=== PATIENT | male | born 1980 ===

== ENCOUNTER 2021-09-15 10:22 | Emergency (ER) | payer SELFPAY ==
--- NOTE | 2021-09-15 15:29 | Emergency Department Report ---
- General Chief Complaint: Upper Respiratory Infection Stated Complaint: ABD PAIN/N/V SOB Source: EMS Mode of arrival: Stretcher Limitations: No Limitations - History of Present Illness Initial Comments: 41-year-old male presents to the ED complaining cough, nasal congestion, headache, body ache x3 days. Patient states that he has been taking [id number] Mucinex sinus medication the last 2 weeks but noticed he has progressively gotten worse over the last 3 days. Patient states that he went to the clinic yesterday to get a COVID test do not know the results as of today. Patient states he is vaccinated to the COVID-vaccine. She states vaccination x1 year ago . patient denies any chest pain ,shortness of breath or abdominal pain at present time. Patient states that his nasal drainage is making him nauseous. Patient is alert and oriented x3. No acute distress noted. No Ill appearance noted. MD Complaint: cough, rhinorrhea, nasal congestion Associated Symptoms: denies other symptoms Treatments Prior to Arrival: none - Related Data Previous Rx's Medication Instructions Recorded Last Taken Type Azithromycin 250 mg PO QDAY 5 Days #6 tab 09/15/21 Unknown Rx predniSONE [Deltasone] 50 mg PO QDAY 5 Days #5 tab 09/15/21 Unknown Rx Allergies Allergy/AdvReac Type Severity Reaction Status Date / Time No Known Allergies Allergy Verified 09/15/21 15:56 ED Review of Systems ROS: Stated complaint: ABD PAIN/N/V SOB Other details as noted in HPI Constitutional: denies: chills, fever Eyes: denies: eye pain, eye discharge, vision change ENT: denies: ear pain, throat pain Respiratory: denies: cough, shortness of breath, wheezing Cardiovascular: denies: chest pain, palpitations Endocrine: no symptoms reported Gastrointestinal: denies: abdominal pain, nausea, diarrhea Genitourinary: denies: urgency, dysuria Musculoskeletal: denies: back pain, joint swelling, arthralgia Skin: denies: rash, lesions Neurological: denies: headache, weakness, paresthesias Psychiatric: denies: anxiety, depression Hematological/Lymphatic: denies: easy bleeding, easy bruising ED Past Medical Hx - Past Medical History Previous Medical History?: No - Surgical History Past Surgical History?: No - Medications Home Medications: Home Medications Medication Instructions Recorded Confirmed Last Taken Type Azithromycin 250 mg PO QDAY 5 Days #6 tab 09/15/21 Unknown Rx predniSONE [Deltasone] 50 mg PO QDAY 5 Days #5 tab 09/15/21 Unknown Rx ED Physical Exam - General Limitations: No Limitations General appearance: alert, in no apparent distress - Head Head exam: Present: atraumatic, normocephalic - Eye Eye exam: Present: normal appearance - ENT ENT exam: Present: mucous membranes moist - Expanded ENT Exam Expanded TM/Canal exam: Cerumen Impaction: Right TM, Left TM, Mastoid Tenderness: Right TM, Left TM (frontal) Throat exam: Positive: other (post nasal drip) - Neck Neck exam: Present: normal inspection - Respiratory Respiratory exam: Present: normal lung sounds bilaterally. Absent: respiratory distress - Cardiovascular Cardiovascular Exam: Present: regular rate, normal rhythm. Absent: systolic mu rmur, diastolic murmur, rubs, gallop - GI/Abdominal GI/Abdominal exam: Present: soft, normal bowel sounds - Rectal Rectal exam: Present: deferred - Extremities Exam Extremities exam: Present: normal inspection - Back Exam Back exam: Present: normal inspection - Neurological Exam Neurological exam: Present: alert, oriented X3 - Psychiatric Psychiatric exam: Present: normal affect, normal mood - Skin Skin exam: Present: warm, dry, intact, normal color. Absent: rash ED Course Vital Signs 09/15/21 09/15/21 09/15/21 10:29 15:53 15:54 Temperature 99.4 F Pulse Rate 111 H 119 H Respiratory 20 24 Rate Blood Pressure Blood Pressure 151/106 133/94 [Left] O2 Sat by Pulse 96 94 94 Oximetry 09/15/21 16:45 Temperature 99.6 F Pulse Rate 123 H Respiratory 24 Rate Blood Pressure 133/90 Blood Pressure [Left] O2 Sat by Pulse 91 Oximetry ED Medical Decision Making - Radiology Data [facility] [address] [place] [address] XRay Report Signed Patient: ROBERTO HUANG MR#: [id number] 5 : 1980 Acct:[id number] Age/Sex: 41 / M ADM Date: 09/15/21 Loc: ED Attending Dr: Ordering Physician: JOANNA SALOMON Date of Service: 09/15/21 Procedure(s): XR chest routine 2V Accession Number(s): [id number] cc: JOANNA SALOMON Fluoro Time In Minutes: CHEST 2 VIEWS INDICATION / CLINICAL INFORMATION: cough. COMPARISON: None available. FINDINGS: SUPPORT DEVICES: None. HEART / MEDIASTINUM: Moderate cardiomegaly LUNGS / PLEURA: Bilateral pulmonary edema. No pleural effusion or pneumothorax. ADDITIONAL FINDINGS: No significant additional findings. IMPRESSION: 1. Moderate cardiomegaly and bilateral infiltrates most likely representing pulmonary edema. If fever is present, pneumonia could be considered. Signer Name: Markus Anton Jr, MD Signed: 09/15/2021 3:48 PM Workstation Name: [id number] Transcribed By: TTR Dictated By: MARKUS ANTON JR, MD Electronically Authenticated By: MARKUS ANTON JR, MD Signed Date/Time: 09/15/21 1548 - Medical Decision Making 41-year-old male presents to the ED complaining cough, nasal congestion, headache, body ache x3 days. Patient states that he has been taking [id number]-[id number] Mucinex sinus medication the last 2 weeks but noticed he has progressively gotten worse over the last 3 days. Patient states that he went to the clinic yesterday to get a COVID test do not know the results as of today. Patient states he is vaccinated to the COVID-vaccine. Patient states vaccinated to COVID 1 year ago. patient denies any chest pain ,shortness of breath or abdominal pain at present time. Patient states that his nasal drainage is making him nauseous. Patient is alert and oriented x3. No acute distress noted. No Ill appearance noted. Physical examination is unremarkable. No wheezing noted on examination. Chest x-ray shows IMPRESSION: 1. Moderate cardiomegaly and bilateral infiltrates most likely representing pulmonary edema. If fever is present, pneumonia could be considered. cardiomegaly and bilateral infiltrate. Patient states that he is aware of cardiomegaly due to his prior cocaine abuse. We will treat patient for pneumonia due to patient symptom with azithromycin and steroids. Patient has a walking O2 sat 90 to 92 without any acute distress noted. Patient denies any shortness of breath. Critical care attestation.: If time is entered above; I have spent that time in minutes in the direct care of this critically ill patient, excluding procedure time. ED Disposition Clinical Impression: Suspected COVID-19 virus infection Pneumonia Qualifiers: Pneumonia type: due to unspecified organism Laterality: bilateral Lung location: unspecified part of lung Qualified Code(s): J18.9 - Pneumonia, unspecified organism Disposition: 01 HOME / SELF CARE / HOMELESS Is pt being admited?: No Does the pt Need Aspirin: No Condition: Stable Instructions: Bacterial Pneumonia (ED), Community-Acquired Pneumonia, Adult Additional Instructions: Your symptoms appear most consistent with a nonspecific viral syndrome. However, given this current pandemic, COVID-19 is in the differential of possibilities. Despite your previous negative COVID-19 test, I do recommend repeat outpatient Covid 19 testing. In the meantime, isolate/quarantine yourself and stay away from anyone who is elderly, immunocompromised or chronically ill. You can use ibuprofen every 6-8 hours and Tylenol every 4-8 hours, using the dosing on the back of the bottle, as needed for any fever or body aches. Return to the emergency department with any worsening of your symptoms, development of chest pain or shortness of breath, or with any acute distress. Prescriptions: Azithromycin 250 mg PO QDAY 5 Days #6 tab predniSONE [Deltasone] 50 mg PO QDAY 5 Days #5 tab Referrals: [facility] [Outside] - 3-5 Days Forms: Work/School Release Form(ED) Time of Disposition: 17:40
--- NOTE | 2021-09-15 15:52 | XRay Report ---
CHEST 2 VIEWS INDICATION / CLINICAL INFORMATION: cough. COMPARISON: None available. FINDINGS: SUPPORT DEVICES: None. HEART / MEDIASTINUM: Moderate cardiomegaly LUNGS / PLEURA: Bilateral pulmonary edema. No pleural effusion or pneumothorax. ADDITIONAL FINDINGS: No significant additional findings. IMPRESSION: 1. Moderate cardiomegaly and bilateral infiltrates most likely representing pulmonary edema. If fever is present, pneumonia could be considered. Signer Name: Markus Palmer Jr, MD Signed: 09/15/2021 3:48 PM Workstation Name: [id number]
[2021-09-15] MEDS ORDERED: SODIUM CHLORIDE 0.9% 1000 ML 1,000 ML IV ONE (16:00)
[2021-09-15] MEDS ORDERED: KETOROLAC 30 MG/1 ML INJ IV ONE (16:30)
[2021-09-15 17:42] VITALS: BP 128/78
== END 2021-09-15 18:32 | disposition home or self-care (01) ==
LOC: ED 10:22
DX: J18.9 Pneumonia, unspecified organism (principal); Z20.822 Contact with and (suspected) exposure to COVID-19
CPT/HCPCS: 71046; 96361; 96374; 99284; J1885